=== PATIENT | male | born 1985 | race Caucasian/White ===

== ENCOUNTER 2018-02-19 16:09 | Emergency (ER) | payer BC | END 2018-02-19 16:34 | disposition home or self-care (01) | LOC: BURERS 16:09 | DX: S43.401A Unspecified sprain of right shoulder joint, initial encounter (principal); F17.210 Nicotine dependence, cigarettes, uncomplicated; X50.0XXA Overexertion from strenuous movement or load, initial encounter | CPT/HCPCS: 99283 ==